=== PATIENT | male | born 2000 | race Caucasian/White ===

== ENCOUNTER 2024-11-14 23:03 | Inpatient (IN) | payer MEDICAID, OTHER ==
[~2024-11-14] VITALS: Ht 180.3 cm; Wt 115.9 kg
--- NOTE | 2024-11-15 00:04 | ED.PDOC ---
History of Present Illness(SKN HPI Comments Pt presents to the ER with C/O insect bite to right upper arm. Per pt he was bit x1 day ago and has noticed swelling and increased redness to arm. Pt also reports bodyaches and nausea since occurence. Pt states he does not know what bit him but did pull out a stinger from affected area. denies fevers, chills, n/v/d Chief Complaint: Insect Bite Time Seen by MD: 23:18 Primary Care Provider: MELVA History of Present Illness: Nurses Notes, Medications, Allergies Allergies: Coded Allergies: NO KNOWN ALLERGIES (Unverified , 04/27/14) Information Source: Patient Mode of Arrival: Ambulatory Past Medical History PAST MEDICAL HISTORY: Denies Surgical History: Denies all surgeries Family History Family History: Reviewed,noncontributory to illness Social History Smoker: Non-Smoker Alcohol: Denies ETOH Use Drugs: Denies Drug Use All Other Systems: Reviewed and Negative (see hpi) Physical Exam General Appearance: No Apparent Distress, Normal HEENT: Normal ENT Inspection, Pharynx Normal Neck: Full Range of Motion, Non-Tender Respiratory: Lungs Clear, No Respiratory Distress, Normal Breath Sounds Cardiovascular: No Edema, No JVD, No Murmur, No Gallop, Normal Peripheral Pulses, Regular Rate/Rhythm Breast Exam: Deferred Gastrointestinal: No Organomegaly, Non Tender, No Pulsatile Mass, Normal Bowel Sounds, Soft Genitalia: Deferred Pelvic: Deferred Rectal: Deferred Extremities: Normal capillary refill, Normal range of motion, Non-tender, No pedal edema Musculoskeletal : Apperance: Normal Neurologic: Alert, No Motor Deficits, Normal Affect, Normal Mood, No Sensory Deficits Cerebellar Function: Normal Reflexes: R Biceps (WNL) Skin: Dry, Normal Color, Warm, Wounds (PROXIMAL MEDIAL ASPECT OF RIGHT UPPER ARM MODERATE EDEMA, AND ERYTHEMA OPENING WOUND OR DRAINAGE. WARM TO TOUCH) Lymphatic: No Adenopathy Was a procedure done? Was a procedure done?: No Differential Diagnosis (INTG) Differential Diagnosis: Cellulitis, Insect Envenomation, Puncture Wound Differential Diagnosis: Abscess X-Ray, Labs, Meds, VS Vital Signs Date Time Temp Pulse Resp B/P (MAP) Pulse Ox O2 Delivery O2 Flow Rate FiO2 11/15/24 01:02 96 Room Air* 0 21 11/14/24 23:04 98.3 71 16 141/97 98 98.3 Lab Test 11/15/24 00:29 Range/Units White Blood Count 7.9 4.4-10.8 10^3/uL Red Blood Count 5.14 4.5-5.90 10^6/uL Hemoglobin 16.2 13.5-17.5 g/dL Hematocrit 45.4 41.0-53.0 % Mean Corpuscular Volume 88.3 80.0-100.0 fL Mean Corpuscular Hemoglobin 31.6 28.0-32.0 pg Mean Corpuscular Hemoglobin Concent 35.8 32.0-36.0 g/dL Red Cell Distribution Width 12.5 11.8-14.3 % Platelet Count 260 140-450 10^3/uL Mean Platelet Volume 8.6 6.9-10.8 fL Neutrophils (%) (Auto) 50.9 37.0-80.0 % Lymphocytes (%) (Auto) 38.1 10.0-50.0 % Monocytes (%) (Auto) 8.3 0.0-12.0 % Eosinophils (%) (Auto) 2.3 0.0-7.0 % Basophils (%) (Auto) 0.4 0.0-2.0 % Neutrophils # (Auto) 4.0 1.6-8.6 10 ^3/uL Lymphocytes # (Auto) 3.0 0.4-5.4 10 ^3/uL Monocytes # (Auto) 0.7 0-1.3 10 ^3/uL Eosinophils # (Auto) 0.2 0-0.8 10 ^3/uL Basophils # (Auto) 0 0-0.2 10 ^3/uL Nucleated Red Blood Cells 0.0 % Sodium Level 141 136-145 mmol/L Potassium Level 3.7 3.5-5.1 mmol/L Chloride Level 107 98-107 mmol/L Carbon Dioxide Level 22 20-31 mmol/L Anion Gap 12 5-15 Blood Urea Nitrogen 10 9-23 mg/dL Creatinine 0.99 0.700-1.30 mg/dL Glomerular Filtration Rate Calc 110 >90 mL/min BUN/Creatinine Ratio 10.1 10.0-20.0 Serum Glucose 87 74-106 mg/dL Lactic Acid Level 1.0 0.4-2.0 mmol/L Calcium Level 9.3 8.7-10.4 mg/dL Total Bilirubin 0.5 0.2-1.0 mg/dL Aspartate Amino Transferase (AST) 51 H 13-40 U/L Alanine Aminotransferase (ALT) 80 H 7-40 U/L Alkaline Phosphatase 51 46-116 U/L Total Protein 7.5 5.7-8.2 g/dL Albumin 4.8 3.2-4.8 g/dL Current Medications Medications (Trade) Dose Ordered Sig/Rich Route Start Time Stop Time Status Last Admin Clindamycin Phosphate 50 ml @ 50 mls/hr ONCE ONCE IV 11/15/24 00:15 11/15/24 01:14 DC 11/15/24 00:15 Sodium Chloride 1,000 ml @ 1,000 mls/hr Q1H ONCE IV 11/15/24 00:15 11/15/24 01:14 DC 11/15/24 00:15 Ketorolac Tromethamine (Toradol Injection) 30 mg ONCE ONCE IV 11/15/24 01:30 11/15/24 01:31 DC 11/15/24 01:30 X-Ray, Labs, Meds, VS Comment IMAGING: CT RIGHT UPPER ARM FINDINGS: The alignment is normal. The joint spaces are normal. The glenohumeral joint is normal. The acrom ioclavicular joint is normal. There is no fracture, dislocation, or focal osseous lesion. No CT evidence of osteomyelitis. Moderate diffuse soft tissue swelling and edema throughout the anterolateral soft tissues of the upper arm without organized fluid collection to suggest abscess formation. IMPRESSION: 1. Moderate diffuse anterolateral right upper extremity soft tissue swelling and edema without definite evidence of abscess formation or osteomyelitis. LAB WORK: CBC, CMP, lactic acid within normal limits. MEDICATIONS: Clindamycin 900 mg IV piggyback Toradol 30 mg IV push PLAN: Moderate diffuse swelling, edema and erythema. Patient placed for admission infected bug bite for IV antibiotics, and pain medicine. Time of 1ST Reevaluation: 23:30 Reevaluation 1ST: Unchanged Time of 2ND Reevaluation: 02:51 Reevaluation 2ND: Unchanged Patient Education/Counseling: Diagnosis, Treatment, Prognosis, Need For Follow Up Family Education/Counseling: No Family Present SEPSIS Sepsis Screen Date sepsis recognized/suspect: Nov 14, 2024 Time Sepsis recognized/suspect: 2303 Recent Procedure: No On Antibiotic Therapy: No Respiratory Rate >20: No Heart Rate >90: No Temp<36 C (96.8 F) or >38.3 C: No SBP <90 or MAP <65 mmHG: No New Acute Mental Status Change: No Is the patient on CPAP, BIPAP,: No Physician Orders Blood Culture (11/15/24 00:07) Upper Extremity Wo Contrast (11/15/24 01:27) Vital Signs Date Time Temp Pulse Resp B/P (MAP) Pulse Ox O2 Delivery O2 Flow Rate FiO2 11/15/24 01:02 96 Room Air* 0 21 11/14/24 23:04 98.3 71 16 141/97 98 98.3 Laboratory Tests Test 11/15/24 00:29 Lactic Acid Level 1.0 mmol/L (0.4-2.0) White Blood Count 7.9 10^3/uL (4.4-10.8) Medications Medications Dose Ordered Sig/Rich Route Start Time Stop Time Status Last Admin Dose Admin Clindamycin Phosphate 50 ml @ 50 mls/hr ONCE ONCE IV 11/15/24 00:15 11/15/24 01:14 DC 11/15/24 00:15 Ketorolac Tromethamine 30 mg ONCE ONCE IV 11/15/24 01:30 11/15/24 01:31 DC 11/15/24 01:30 Sodium Chloride 1,000 ml @ 1,000 mls/hr Q1H ONCE IV 11/15/24 00:15 11/15/24 01:14 DC 11/15/24 00:15 Departure 1 Departure Time of Disposition: 02:50 Impression: Primary Impression: Infected insect bite of right arm Qualified Codes: S40.861A - Insect bite (nonvenomous) of right upper arm, initial encounter; L08.9 - Local infection of the skin and subcutaneous tissue, unspecified; W57.XXXA - Bitten or stung by nonvenomous insect and other nonvenomous arthropods, initial encounter Disposition: ADMITTED INPATIENT Condition: Stable Discharged With: Self Critical Care Note Critical Care Time?: No Stability Stability form required: ADRIEN Freeman Nov 15, 2024 00:04
[2024-11-15] MEDS: CLINDAMYCIN 900MG IV 50 ML IV ONE (00:15)
[2024-11-15] MEDS: SODIUM CHLORIDE 0.9% 1,000 ML IV ONE ×2 (00:15→14:15)
[2024-11-15 00:45] LABS: Hematocrit 45.4 % (41.0-53.0); Hemoglobin 16.2 g/dL (13.5-17.5); Mean Corpuscular Hemoglobin 31.6 pg (28.0-32.0); Mean Corpuscular Volume 88.3 fL (80.0-100.0); Nucleated Red Blood Cells % 0.0 %
[2024-11-15 00:58] LABS: Alanine Aminotransferase 80 U/L (7-40); Albumin 4.8 g/dL (3.2-4.8); Alkaline Phosphatase 51 U/L (46-116); Anion Gap 12 (5-15); BUN/Creatinine Ratio 10.1 (10.0-20.0); Bilirubin, Total 0.5 mg/dL (0.2-1.0); Blood Urea Nitrogen 10 mg/dL (9-23); Calcium 9.3 mg/dL (8.7-10.4); Carbon Dioxide 22 mmol/L (20-31); Chloride 107 mmol/L (98-107); Glucose 87 mg/dL (74-106); Potassium 3.7 mmol/L (3.5-5.1); Sodium 141 mmol/L (136-145); Total Protein 7.5 g/dL (5.7-8.2)
[2024-11-15 01:02] VITALS: O2SAT 96
[2024-11-15] MEDS: KETOROLAC TROMETH 30 MG/ML 1ML VIAL IV ONE (01:30)
--- NOTE | 2024-11-15 02:46 | DVH ---
INDICATION: RIGHT UPPER ARM EDEMA/PAIN/REDNESS COMPARISON: None TECHNIQUE: CT of the right shoulder was performed without contrast. Volume transverse images were obt ained and reconstructed in multiple planes using bone and soft tissue algorithms. CONTRAST: None Radiation Dose Information: CTDI volume is 8.09 mGy. Dose-length product is 397.79 mGy*cm FINDINGS: The alignment is normal. The joint spaces are normal. The glenohumeral joint is normal. The acromioclavicular joint is normal. There is no fracture, dislocation, or focal osseous lesion. No CT evidence of osteomyelitis. Moderate diffuse soft tissue swelling and edema throughout the anterolateral soft tissues of the uppe r arm without organized fluid collection to suggest abscess formation. IMPRESSION: 1. Moderate diffuse anterolateral right upper extremity soft tissue swelling and edema without defini te evidence of abscess formation or osteomyelitis. 2. All CT scans at this medical facility are performed using dose modulation techniques as appropriat e to a performed exam including the following: Automated exposure control was utilized; adjustment of the MA and/or KV according to patient size; and use of iterative reconstruction technique.
[2024-11-15] MEDS: HYDROcodone-ACET 10/325MG TAB PO ONE (09:05)
[2024-11-15] MEDS ORDERED: HYDROcodone-ACET 5/325MG TAB PO PRN (12:15)
[2024-11-15] MEDS ORDERED: ONDANSETRON HCL 4 MG/2 ML VIAL IV PRN (12:15)
[2024-11-15] MEDS ORDERED: MORPHINE SULFATE INJ 2 MG/ml SYRG IV PRN (12:15)
[2024-11-15] MEDS ORDERED: DOCUSATE SOD 100 MG CAP PO PRN (12:15)
--- NOTE | 2024-11-15 12:33 | DVHHP2 ---
History of Present Illness Reason for Visit: Insect bite History of Present Illness Mitchell Monzon is a 24-year-old male with no significant past medical history who came to the hospital for insect bite. Patient was bit on his right upper arm by unknown insect on Thursday. States on Thursday he woke up with his right arm swollen, red, painful, as well as the right side of his neck feeling stiff, muscles aches in his thighs, and join pain in his hips and shoulders. He did go to work, but his symptoms continued to worsen as the day went on prompting him to come to the hospital. Past Surgical History: Other (Left shoulder) Smoke: No ALCOHOL: heavy (2-3 beers/day) Lives: with Family Review of Systems Constitutional: Yes: Malaise, Other (body and muscle aches); No: Fever, Chills, Sweats, Weakness Eyes: No: Pain, Vision change, Conjunctivae inflammation, Eyelid inflammation, Other, Redness ENT: No: Ear pain, Ear discharge, Nose pain, Nose discharge, Nose congestion, Mouth pain, Mouth swelling, Throat pain, Throat swelling, Other Respiratory: No: Cough, Dry, Shortness of breath, SOB with excertion, Wheezing, Hemoptysis, Pleuritic Pain, Sputum, Wheezing, Other Cardiovascular: No: Chest Pain, Palpitations, Orthopnea, Paroxysmal Noc. Dyspnea, Edema, Lt Headedness, Other Gastrointestinal: No: Nausea, Vomiting, Abdominal Pain, Diarrhea, Constipation, Melena, Hematochezia, Other Genitourinary: No Dysuria, No Frequency, No Incontinence, No Hematuria, No Retention, No Other Musculoskeletal: No: other, neck pain, shoulder pain, arm pain, back pain, hand pain, leg pain, foot pain Skin: Other (right upper arm insect bite, ); No: Rash, Lesions, Jaundice, Bruising Neurological: No: Weakness, Numbness, Incoordination, Change in speech, Confu michelle, Seizures, Other Allergies: Coded Allergies: NO KNOWN ALLERGIES (Unverified , 04/27/14) Medications Current Medications Medications Dose Ordered Sig/Rich Route Start Time Stop Time Status Last Admin Dose Admin Acetaminophen/ Hydrocodone Bitart 1 tab Q4HP PRN PO 11/15/24 12:15 UNV Ondansetron HCl 4 mg Q4HP PRN IV 11/15/24 12:15 UNV Docusate Sodium 100 mg BIDPRN PRN PO 11/15/24 12:15 UNV Morphine Sulfate 2 mg Q4HPRN PRN IV 11/15/24 12:15 UNV Clindamycin Phosphate 50 ml @ 50 mls/hr Q8HR IV 11/15/24 14:00 UNV Exam Vital Signs Vital Signs Date Time Temp Pulse Resp B/P (MAP) Pulse Ox O2 Delivery O2 Flow Rate FiO2 11/15/24 01:02 96 Room Air* 0 21 11/14/24 23:04 98.3 71 16 141/97 98.3 General Appearance: Alert, Oriented X3, Cooperative, mild distress HEENT: Atraumatic, PERRLA, Mucous membr. moist/pink Respiratory: Clear to auscultation, Normal air movement Cardiovascular: Regular rate, Normal S1, Normal S2, No murmurs Abdominal: Normal bowel sounds, No tenderness, No hepatospenomegaly Extremities: No clubbing, No cyanosis, No edema, Normal pulses Skin: No rashes, No breakdown, No significant lesion (right upper arm redness, warmth, swelling, and firm) Neuro: Normal gait, Normal speech, Strength at 5/5 X4 ext Psych/Mental Status: Mental status NL, Mood NL Labs/Xrays Labs Test 11/15/24 00:29 Range/Units White Blood Count 7.9 4.4-10.8 10^3/uL Red Blood Count 5.14 4.5-5.90 10^6/uL Hemoglobin 16.2 13.5-17.5 g/dL Hematocrit 45.4 41.0-53.0 % Mean Corpuscular Volume 88.3 80.0-100.0 fL Mean Corpuscular Hemoglobin 31.6 28.0-32.0 pg Mean Corpuscular Hemoglobin Concent 35.8 32.0-36.0 g/dL Red Cell Distribution Width 12.5 11.8-14.3 % Platelet Count 260 140-450 10^3/uL Mean Platelet Volume 8.6 6.9-10.8 fL Neutrophils (%) (Auto) 50.9 37.0-80.0 % Lymphocytes (%) (Auto) 38.1 10.0-50.0 % Monocytes (%) (Auto) 8.3 0.0-12.0 % Eosinophils (%) (Auto) 2.3 0.0-7.0 % Basophils (%) (Auto) 0.4 0.0-2.0 % Neutrophils # (Auto) 4.0 1.6-8.6 10 ^3/uL Lymphocytes # (Auto) 3.0 0.4-5.4 10 ^3/uL Monocytes # (Auto) 0.7 0-1.3 10 ^3/uL Eosinophils # (Auto) 0.2 0-0.8 10 ^3/uL Basophils # (Auto) 0 0-0.2 10 ^3/uL Nucleated Red Blood Cells 0.0 % Sodium Level 141 136-145 mmol/L Potassium Level 3.7 3.5-5.1 mmol/L Chloride Level 107 98-107 mmol/L Carbon Dioxide Level 22 20-31 mmol/L Anion Gap 12 5-15 Blood Urea Nitrogen 10 9-23 mg/dL Creatinine 0.99 0.700-1.30 mg/dL Glomerular Filtration Rate Calc 110 >90 mL/min BUN/Creatinine Ratio 10.1 10.0-20.0 Serum Glucose 87 74-106 mg/dL Lactic Acid Level 1.0 0.4-2.0 mmol/L Calcium Level 9.3 8.7-10.4 mg/dL Total Bilirubin 0.5 0.2-1.0 mg/dL Aspartate Amino Transferase (AST) 51 H 13-40 U/L Alanine Aminotransferase (ALT) 80 H 7-40 U/L Alkaline Phosphatase 51 46-116 U/L Total Protein 7.5 5.7-8.2 g/dL Albumin 4.8 3.2-4.8 g/dL INDICATION: RIGHT UPPER ARM EDEMA/PAIN/REDNESS FINDINGS: The alignment is normal. The joint spaces are normal. The glenohumeral joint is normal. The acromioclavicular joint is normal. There is no fracture, dislocation, or focal osseous lesion. No CT evidence of osteomyelitis. Moderate diffuse soft tissue swelling and edema throughout the anterolateral soft tissues of the upper arm without organized fluid collection to suggest abscess formation. IMPRESSION: 1. Moderate diffuse anterolateral right upper extremity soft tissue swelling and edema without definite evidence of abscess formation or osteomyelitis. SEPSIS Sepsis Screen Date sepsis recognized/suspect: Nov 14, 2024 Time Sepsis recognized/suspect: 2303 Recent Procedure: No On Antibiotic Therapy: No Respiratory Rate >20: No Heart Rate >90: No Temp<36 C (96.8 F) or >38.3 C: No SBP <90 or MAP <65 mmHG: No New Acute Mental Status Change: No Is the patient on CPAP, BIPAP,: No Physician Orders Admit (11/15/24 12:09) Code Status (11/15/24 12:09) Hydrocodone-Acet 5/325mg Tab (Lancing 5/32 (11/15/24 12:15) Ondansetron Hcl (Zofran) (11/15/24 12:15) Docusate Sodium Capsule (Colace Capsule) (11/15/24 12:15) Complete Blood Count (11/16/24 04:00) Comprehensive Metabolic Panel (11/16/24 04:00) Condition: Serious (11/15/24 12:09) Morphine Sulfate Injection (11/15/24 12:15) Clindamycin 600mg Iv (Cleocin Iv) (11/15/24 14:00) Laboratory Tests Test 11/15/24 00:29 Lactic Acid Level 1.0 mmol/L (0.4-2.0) White Blood Count 7.9 10^3/uL (4.4-10.8) Medications Medications Dose Ordered Sig/Rich Route Start Time Stop Time Status Last Admin Dose Admin Acetaminophen/ Hydrocodone Bitart 1 tab ONCE ONCE PO 11/15/24 09:00 11/15/24 09:04 DC 11/15/24 09:05 1 TAB Ketorolac Tromethamine 30 mg ONCE ONCE IV 11/15/24 01:30 11/15/24 01:31 DC 11/15/24 01:30 30 MG Assessment/Plan Assessment/Plan Assessment: Infected insect bite of right arm, ETOH dependance, Plan: Admit to Med-Surg, IV antibiotics, IV hydration, Pain management, Supplemental vitamins for ETOH dependance, Plan discussed with: Patient My Orders Orders - MAYLIN MADSEN Procedure Category Date Status Time Admit ADMIT 11/15/24 Transmitted 12:09 Code Status CODE 11/15/24 Transmitted 12:09 Hydrocodone-Acet PHA 11/15/24 Logged 5/325mg Tab (Lancing 12:15 Ondansetron Hcl PHA 11/15/24 Logged (Zofran) 12:15 Docusate Sodium PHA 11/15/24 Logged Capsule (Colace 12:15 Complete Blood Count LAB 11/16/24 Verified 04:00 Comprehensive LAB 11/16/24 Verified Metabolic Panel 04:00 Condition: Serious AYANNA 11/15/24 In Process 12:09 Morphine Sulfate PHA 11/15/24 Logged Injection 12:15 Clindamycin 600mg Iv PHA 11/15/24 Logged (Cleocin Iv) 14:00 Date of Service: Nov 15, 2024 Billing Provider: MAYLIN MADSEN Common Visit Codes: [id number] INP/OBS CARE (MOD) MAYLIN MADSEN Nov 15, 2024 12:33
[2024-11-15] MEDS ORDERED: LORazepam 2MG/ML-1ML VIAL IV PRN (14:15)
[2024-11-15 14:53] VITALS: BP 123/77; PULSE 72; RESP 18; TEMP 98; O2SAT 96
[2024-11-15] MEDS: CLINDAMYCIN 600MG IV 50 ML IV SCH (16:14)
[2024-11-15] MEDS: FOLIC ACID 1 MG TAB PO ONE (16:15)
[2024-11-15] MEDS: THIAMINE HCL 100 MG TAB PO ONE (16:15)
[2024-11-15] MEDS: MULTIPLE VITAMIN TAB PO ONE (16:15)
[2024-11-16] MEDS ORDERED: MULTIPLE VITAMIN TAB PO SCH (10:00)
[2024-11-16] MEDS ORDERED: FOLIC ACID 1 MG TAB PO SCH (10:00)
[2024-11-16] MEDS ORDERED: THIAMINE HCL 100 MG TAB PO SCH (10:00)
== END 2024-11-15 20:14 | disposition left against medical advice (07) | DRG 385 ==
LOC: ER 23:03 → OVERFLOW 11-15 12:09
PROVIDERS: ADMIT Nurse Practitioner Family; ATTEND Nurse Practitioner Family
DX: S40.861A Insect bite (nonvenomous) of right upper arm, initial encounter (principal); F10.20 Alcohol dependence, uncomplicated; W57.XXXA Bitten or stung by nonvenomous insect and other nonvenomous arthropods, initial encounter; Y93.89 Activity, other specified; Y92.89 Other specified places as the place of occurrence of the external cause; Y99.8 Other external cause status; Y90.9 Presence of alcohol in blood, level not specified
CPT/HCPCS: 36415; 73200; 80053; 83605; 85025; 87040; 96365; 96366; 96375; G0378; J1885; J3490